=== PATIENT | male | born 1955 | race Caucasian/White ===

== ENCOUNTER 2021-09-30 14:31 | Outpatient (CLI) | payer MEDICARE, BC, SELFPAY ==
[2021-09-30 21:24] LABS: Chloride* 102 mmol/L (96-114); Sodium* 136 mmol/L (135-149)
[2021-09-30 21:25] LABS: Potassium* 4.2 mmol/L (3.6-5.1)
[2021-09-30 21:27] LABS: Creatinine* 0.9 mg/dL (0.5-1.5); Estimated Glomerular Filt Rate 94.78
[2021-09-30 21:28] LABS: Blood Urea Nitrogen* 27 mg/dL (7-30); Calcium* 9.1 mg/dL (8.4-10.6); Carbon Dioxide* 30 mmol/L (20-32); Glucose* 159 mg/dL (60-115)
[2021-09-30 21:58] LABS: PSA Screen* 1.48 ng/mL (0.10-4.00)
[2021-09-30 22:00] LABS: Creatinine Urine 123.2 mg/dL
[2021-09-30 22:04] LABS: Microalbumin Creatinine Ratio 0 mg/g (0-30); Microalbumin Urine < 1 mg/dL
== END 2021-09-30 14:32 | disposition home or self-care (01) ==
PROVIDERS: Visit Provider Emergency Medicine
DX: Z00.00 Encounter for general adult medical examination without abnormal findings (principal); I10 Essential (primary) hypertension; E11.9 Type 2 diabetes mellitus without complications; E78.5 Hyperlipidemia, unspecified; R79.89 Other specified abnormal findings of blood chemistry; Z12.5 Encounter for screening for malignant neoplasm of prostate
CPT/HCPCS: 80048; 82043; 82570; 84153; 84443

== ENCOUNTER 2022-09-15 08:45 | Outpatient (CLI) | payer MEDICARE, BC, SELFPAY | END 2022-09-15 08:46 | disposition home or self-care (01) | LOC: NFLDREF 18:39 | PROVIDERS: Visit Provider Emergency Medicine | DX: E11.9 Type 2 diabetes mellitus without complications (principal); E78.5 Hyperlipidemia, unspecified; I10 Essential (primary) hypertension | CPT/HCPCS: 80053; 80061; 82043; 82570; 84153 ==

== ENCOUNTER 2022-10-19 13:44 | Outpatient (CLI) | payer MEDICARE, BC, SELFPAY | END 2022-10-19 13:45 | disposition home or self-care (01) | LOC: RAD 13:45 | PROVIDERS: PCP Emergency Medicine; Visit Provider Emergency Medicine | DX: I48.91 Unspecified atrial fibrillation (principal) | CPT/HCPCS: 93306 ==

== ENCOUNTER 2022-11-20 06:13 | Outpatient (CLI) | payer MEDICARE, BC, SELFPAY | END 2022-11-20 06:14 | disposition home or self-care (01) | PROVIDERS: PCP Emergency Medicine; Visit Provider Internal Medicine | DX: I48.91 Unspecified atrial fibrillation (principal); I51.7 Cardiomegaly; I07.1 Rheumatic tricuspid insufficiency | CPT/HCPCS: 93005 ==

== ENCOUNTER 2023-01-21 13:02 | Outpatient (CLI) | payer MEDICARE, BC, SELFPAY | END 2023-01-21 13:03 | disposition home or self-care (01) | LOC: NFLDREF 01-25 08:20 | PROVIDERS: PCP Emergency Medicine; Referring Provider Emergency Medicine; Visit Provider Emergency Medicine | DX: I48.91 Unspecified atrial fibrillation (principal) | CPT/HCPCS: 84443 ==

== ENCOUNTER 2023-10-13 08:14 | Outpatient (CLI) | payer MEDICARE, BC, SELFPAY | END 2023-10-13 08:15 | disposition home or self-care (01) | LOC: LKVREF 08:16 | PROVIDERS: PCP Emergency Medicine; Visit Provider Emergency Medicine | DX: I10 Essential (primary) hypertension (principal); E78.5 Hyperlipidemia, unspecified; E11.9 Type 2 diabetes mellitus without complications; I48.91 Unspecified atrial fibrillation; M81.0 Age-related osteoporosis without current pathological fracture; Z12.5 Encounter for screening for malignant neoplasm of prostate | CPT/HCPCS: 80053; 80061; 82043; 82306; 82570; G0103 ==

== ENCOUNTER 2024-10-24 08:52 | Outpatient (CLI) | payer MEDICARE, BC, SELFPAY | END 2024-10-24 08:53 | disposition home or self-care (01) | LOC: NFLDREF 10-26 14:36 | PROVIDERS: PCP Emergency Medicine; Referring Provider Emergency Medicine; Visit Provider Family Medicine | DX: E11.9 Type 2 diabetes mellitus without complications (principal); R53.83 Other fatigue; E78.2 Mixed hyperlipidemia; Z13.0 Encounter for screening for diseases of the blood and blood-forming organs and certain disorders involving the immune mechanism; Z12.5 Encounter for screening for malignant neoplasm of prostate | CPT/HCPCS: 80053; 80061; 82043; 82570; G0103 ==

== ENCOUNTER 2025-02-28 09:04 | Outpatient (CLI) | payer MEDICARE, BC, SELFPAY | END 2025-02-28 09:05 | disposition home or self-care (01) | LOC: NFLDREF 03-02 14:12 | PROVIDERS: PCP Physician Assistant Medical; Referring Provider Physician Assistant Medical; Visit Provider Physician Assistant Medical | DX: E78.5 Hyperlipidemia, unspecified (principal) | CPT/HCPCS: 80061 ==